=== PATIENT | female | born 1960 | race Caucasian/White ===

== ENCOUNTER 2020-08-20 20:09 | Emergency (ER) | payer BC ==
[2020-08-20 21:11] LABS: CHLORIDE,CL 106 mmol/L (98-107); SODIUM,NA 141 mmol/L (136-145)
--- NOTE | 2020-08-20 22:30 | EDM.PDOC ---
ED HPI GENERAL MEDICAL PROBLEM - General Chief Complaint: Chest Pain Stated Complaint: chest pain Time Seen by Provider: 08/20/20 21:00 Source of Information: Reports: Patient History Limitations: Reports: No Limitations - History of Present Illness INITIAL COMMENTS - FREE TEXT/NARRATIVE: Patient comes to ER after feeling not quite right for 3 or so days. Notes episodic brief pain right chest/no particular trigger. Pushing on area can cause discomfort. Chest also feels tight at times. Feels her heart beat flutters briefly at times. Has chronic SOB but it felt a bit worse today when she was trying to walk back to house. Feelings come and go. Again no particular triggers and nothing specifically improves them. Has had similar feelings before in past. Reports chest tightness a couple times a year. Mild light headedness this morning/brief. Had a few hot flashes. Has been trying to eat better/diet and is taking in around 1300 calories daily. Lost around 20 pounds. Took Aleve today. Has arthritis/chronic back pain and they have considered possible fibromyalgia. Dad had TX. Patient denies history of CAD/TX but is on Metoprolol for arrhythmia. Chest Pain Score (Numeric/FACES): 6 - Related Data Allergies Allergy/AdvReac Type Severity Reaction Status Date / Time morphine Allergy Rash Verified 08/20/20 20:22 Home Meds: Home Meds Ascorbic Acid [C-1000] 1 tab PO DAILY 08/20/20 [History] Aspirin 1 tab PO BEDTIME 08/20/20 [History] Cholecalciferol (Vitamin D3) [Vitamin D3] 1 cap PO DAILY 08/20/20 [History] Cyanocobalamin (Vitamin B-12) [Vitamin B-12] 1 tab PO DAILY 08/20/20 [History] Fish Oil/[place]-3 Fatty Acids [Fish Oil 1,000 MG] 1 cap PO DAILY 08/20/20 [History] Magnesium Carb,Citrate,Oxide [Magnesium Complex] 1 tab PO DAILY 08/20/20 [History] Methylcellulose (with Sugar) [Citrucel] 454 gm PO DAILY 08/20/20 [History] Metoprolol Tartrate 25 mg PO DAILY 08/20/20 [History] Naproxen Sodium [Aleve] 1 tab PO ASDIRECTED PRN 08/20/20 [History] polyethylene glycoL 3350 [MiraLAX] 17 gm PO ASDIRECTED PRN 08/20/20 [History] Past Medical History Cardiovascular History: Reports: Arrhythmia Gastrointestinal History: Reports: Chronic Constipation Musculoskeletal History: Reports: Back Pain, Chronic, Osteoarthritis Endocrine/Metabolic History: Reports: Hypothyroidism, Obesity/BMI 30+ Social & Family History - Tobacco Use Tobacco Use Status *Q: Never Tobacco User - Caffeine Use Caffeine Use: Reports: Coffee - Recreational Drug Use Recreational Drug Use: No ED ROS GENERAL - Review of Systems Review Of Systems: Comprehensive ROS is negative, except as noted in HPI. ED EXAM, GENERAL - Physical Exam Exam: See Below Exam Limited By: No Limitations General Appearance: Alert, No Apparent Distress, Obese Eye Exam: Bilateral Eye: EOMI, PERRL Ears: Normal External Exam, Normal Canal, Hearing Grossly Normal, Normal TMs Nose: No: Nasal Deformity, Nasal Swelling, Nasal Drainage Throat/Mouth: Normal Lips, Normal Voice, No Airway Compromise Head: Atraumatic, Normocephalic Neck: Normal Inspection, Supple, Non-Tender, Full Range of Motion. No: Carotid Bruit Respiratory/Chest: No Respiratory Distress, Lungs Clear, Normal Breath Sounds, No Accessory Muscle Use, Other (Some tenderness noted right pectoral area with palpation/mild) Cardiovascular: Normal Peripheral Pulses, Regular Rate, Rhythm, No Edema, No JVD, No Murmur GI/Abdominal: Normal Bowel Sounds, Soft, Non-Tender, No Distention (Female) Exam: Deferred Rectal (Female) Exam: Deferred Back Exam: No: CVA Tenderness (L), CVA Tenderness (R), Muscle Spasm Extremities: Normal Range of Motion, Non-Tender, Normal Capillary Refill Neurological: Alert, Oriented, Normal Cognition, Normal Gait, No Motor/Sensory Deficits Psychiatric: Normal Affect, Normal Mood Skin Exam: Warm, Dry, Intact, Normal Color #1 Interpretation EKG Date: 08/20/20 Time: 20:10 Rhythm: Other (Sinus Bradycardia) [place]: Normal P-Wave: Present QRS: Normal ST-T: Normal QT: Normal Comparison: NA - No Prior EKG Course - Vital Signs Last Recorded V/S: Last Vital Signs Temp 37.2 C 08/20/20 20:15 Pulse 59 L 08/20/20 20:15 Resp 19 08/20/20 21:15 BP 138/73 08/20/20 21:15 Pulse Ox 99 08/20/20 21:15 - Orders/Labs/Meds Orders: Active Orders 24 hr Category Date Time Status CXR [Chest 2V] [CR] Stat Exams 08/20/20 20:38 Taken Labs: Laboratory Tests 08/20/20 08/20/20 08/20/20 Range/Units 20:45 20:45 20:45 WBC 5.3 (4.0-10.2) K/uL RBC 3.95 (3.77-5.09) M/uL Hgb 11.9 (11.7-15.5) g/dL Hct 35.2 (34.0-46.0) % MCV 89.1 (84.0-98.0) fL MCH 30.1 (28.2-33.3) pg MCHC 33.8 (31.7-36.0) g/dL RDW 13.1 (11.2-14.1) % Plt Count 184 (150-350) K/uL Neut % (Auto) 56.4 (45.0-80.0) % Lymph % (Auto) 32.8 (10.0-50.0) % [place] % (Auto) 9.1 (2.0-14.0) % Eos % (Auto) 1.3 (0.0-5.0) % Baso % (Auto) 0.4 (0.0-2.0) % Neut # (Auto) 2.96 (1.40-7.00) K/uL Lymph # (Auto) 1.72 (0.50-3.50) K/uL [place] # (Auto) 0.48 (0.00-1.00) K/uL Eos # (Auto) 0.07 (0.00-0.50) K/uL Baso # (Auto) 0.02 (0.00-0.20) K/uL D-Dimer, Quantitative 257 (0-400) ng/mL Sodium 141 (136-145) mmol/L Potassium 3.7 (3.5-5.1) mmol/L Chloride 106 (98-107) mmol/L Carbon Dioxide 26.3 (21.0-32.0) mmol/L BUN 11 (7-18) mg/dL Creatinine 0.73 (0.51-1.17) mg/dL Est Cr Clr Drug Dosing 82.68 mL/min Estimated GFR (MDRD) > 60 mL/min Glucose 104 H (70-99) mg/dL Calcium 9.1 (8.5-10.1) mg/dL Magnesium 1.9 (1.8-2.4) mg/dL Total Bilirubin 0.3 (0.2-1.0) mg/dL AST 21 (15-37) U/L ALT 28 (12-78) U/L Alkaline Phosphatase 78 (46-116) IU/L Troponin I 0.000 (0.000-0.056) ng/mL NT-Pro-B Natriuret Pep 80 (0-125) pg/mL Total Protein 6.6 (6.4-8.2) g/dL Albumin 3.7 (3.4-5.0) g/dL TSH, Ultra Sensitive (0.358-3.740) mIU/mL Specimen Type Urine Color Urine Appearance Urine pH (5.0-9.0) Ur Specific [place] (1.005-1.030) Urine Protein (NEGATIVE) mg/dL Urine Glucose (UA) (NEGATIVE) mg/dL Urine Ketones (NEGATIVE) mg/dL Urine Occult Blood (NEGATIVE) Urine Nitrite (NEGATIVE) Urine Bilirubin (NEGATIVE) Urine Urobilinogen (0.2-1.0) E.U./dL Ur Leukocyte Esterase (NEGATIVE) Urine RBC /HPF Urine WBC /HPF Ur Epithelial Cells /LPF Urine Bacteria (NONE TO FEW) /HPF 08/20/20 08/20/20 Range/Units 20:45 22:10 WBC (4.0-10.2) K/uL RBC (3.77-5.09) M/uL Hgb (11.7-15.5) g/dL Hct (34.0-46.0) % MCV (84.0-98.0) fL MCH (28.2-33.3) pg MCHC (31.7-36.0) g/dL RDW (11.2-14.1) % Plt Count (150-350) K/uL Neut % (Auto) (45.0-80.0) % Lymph % (Auto) (10.0-50.0) % [place] % (Auto) (2.0-14.0) % Eos % (Auto) (0.0-5.0) % Baso % (Auto) (0.0-2.0) % Neut # (Auto) (1.40-7.00) K/uL Lymph # (Auto) (0.50-3.50) K/uL [place] # (Auto) (0.00-1.00) K/uL Eos # (Auto) (0.00-0.50) K/uL Baso # (Auto) (0.00-0.20) K/uL D-Dimer, Quantitative (0-400) ng/mL Sodium (136-145) mmol/L Potassium (3.5-5.1) mmol/L Chloride (98-107) mmol/L Carbon Dioxide (21.0-32.0) mmol/L BUN (7-18) mg/dL Creatinine (0.51-1.17) mg/dL Est Cr Clr Drug Dosing mL/min Estimated GFR (MDRD) mL/min Glucose (70-99) mg/dL Calcium (8.5-10.1) mg/dL Magnesium (1.8-2.4) mg/dL Total Bilirubin (0.2-1.0) mg/dL AST (15-37) U/L ALT (12-78) U/L Alkaline Phosphatase (46-116) IU/L Troponin I (0.000-0.056) ng/mL NT-Pro-B Natriuret Pep (0-125) pg/mL Total Protein (6.4-8.2) g/dL Albumin (3.4-5.0) g/dL TSH, Ultra Sensitive 4.670 H (0.358-3.740) mIU/mL Specimen Type Urinblad Urine Color Light yellow Urine Appearance Clear Urine pH 7.0 (5.0-9.0) Ur Specific [place] 1.015 (1.005-1.030) Urine Protein Negative (NEGATIVE) mg/dL Urine Glucose (UA) Negative (NEGATIVE) mg/dL Urine Ketones Negative (NEGATIVE) mg/dL Urine Occult Blood Negative (NEGATIVE) Urine Nitrite Negative (NEGATIVE) Urine Bilirubin Negative (NEGATIVE) Urine Urobilinogen 0.2 (0.2-1.0) E.U./dL Ur Leukocyte Esterase Trace H (NEGATIVE) Urine RBC 0-5 /HPF Urine WBC 0-5 /HPF Ur Epithelial Cells Few /LPF Urine Bacteria Few (NONE TO FEW) /HPF - Re-Assessments/Exams Free Text/Narrative Re-Assessment/Exam: 08/20/20 23:41 Chest xray / EKG unremarkable. CBC/Chem/Mg/trop/ddimer/Mag/proBNP normal TSH elevated. No arrhythmia noted on monitor. BP/vital signs stable. Patient declined observation admission/telemetry/troponin checks. Asymptomatic at that time. Uncertain as to etiology of her complaints. Not obviously cardiac in origin. Right chest pain appears to be more likely musculoskeletal. Appears to be hypothyroid. Needs appropriate Thyroid workup labs. Plan at this time is to have her follow up this week at clinic for further testing. She is to continue to observe for changes and is to follow up in ER if she has sudden worsening problems. Clinic can consider stress test as precaution. Patient agreeable with plan. Departure - Departure Time of Disposition: 22:28 Disposition: Home, Self-Care 01 Condition: Good Clinical Impression: Does not feel right, High thyroid stimulating hormone (TSH) level - Discharge Information *PRESCRIPTION DRUG MONITORING PROGRAM REVIEWED*: Not Applicable *COPY OF PRESCRIPTION DRUG MONITORING REPORT IN PATIENT JOSIE: Not Applicable Referrals: PCP,None [Primary Care Provider] - Forms: ED Department Discharge Additional Instructions: Make an appointment to be seen next week at clinic. Get full thyroid testing. See how you are feeling and if any new symptoms develop between now and the appointment. Further evaluation as needed. Return to the ER if you have sudden worsening problems. Sepsis Event Note (ED) - Evaluation Sepsis Screening Result: No Definite Risk - Focused Exam Vital Signs: Vital Signs Temp Pulse Resp BP Pulse Ox 08/20/20 21:15 19 138/73 99 08/20/20 21:05 18 127/70 98 08/20/20 20:30 17 120/70 97 08/20/20 20:15 37.2 C 59 L 19 120/63 98 - My Orders Last 24 Hours: My Active Orders 08/20/20 20:38 CXR [Chest 2V] [CR] Stat - Assessment/Plan Last 24 Hours: My Active Orders 08/20/20 20:38 CXR [Chest 2V] [CR] Stat
== END 2020-08-20 22:50 | disposition home or self-care (01) ==
LOC: LL.ED 20:09
DX: R94.6 Abnormal results of thyroid function studies (principal); R00.1 Bradycardia, unspecified; M19.90 Unspecified osteoarthritis, unspecified site; E03.9 Hypothyroidism, unspecified; E66.9 Obesity, unspecified; Z68.37 Body mass index [BMI] 37.0-37.9, adult; Z79.82 Long term (current) use of aspirin; Z79.899 Other long term (current) drug therapy; Z88.5 Allergy status to narcotic agent
CPT/HCPCS: 36415; 71046; 80053; 81001; 83735; 83880; 84443; 84484; 85025; 85379; 93005; 93010; 99284; 99285-25

== ENCOUNTER 2022-06-08 09:29 | Emergency (ER) | payer BC ==
[2022-06-08 10:51] LABS: ANION GAP 6.8 meq/L (7-15); CHLORIDE,CL 103 mmol/L (98-107); SODIUM,NA 139 mmol/L (136-145)
[2022-06-08 10:57] LABS: ESTIMATED GFR 86 mL/min (>=60)
== END 2022-06-08 13:10 | disposition home or self-care (01) ==
LOC: LL.ED 09:29
DX: K57.32 Diverticulitis of large intestine without perforation or abscess without bleeding (principal); E03.9 Hypothyroidism, unspecified; E66.9 Obesity, unspecified; Z68.30 Body mass index [BMI] 30.0-30.9, adult; Z88.5 Allergy status to narcotic agent; Z79.82 Long term (current) use of aspirin
CPT/HCPCS: 36415; 74176; 80053; 81003; 85025; 99284

== ENCOUNTER 2023-07-10 10:37 | Day surgery (SDC) | payer BC ==
[~2023-07-10 10:37] MED LIST: Propofol 200 MG/20 ML SDV ONE; Sodium Chloride 0.9% 10 ML Syringe FLUSH PRN
[2023-07-10] MEDS: Lactated Ringers 1,000 ML IV SCH ×2 (10:44→12:43)
[2023-07-10] MEDS ORDERED: Propofol 200 MG/20 ML SDV ONE (12:16)
== END 2023-07-10 13:28 | disposition home or self-care (01) ==
LOC: LL.SDS 10:37
PROVIDERS: ATTEND Surgery
DX: Z12.11 Encounter for screening for malignant neoplasm of colon (principal); K57.30 Diverticulosis of large intestine without perforation or abscess without bleeding; K21.9 Gastro-esophageal reflux disease without esophagitis; E03.9 Hypothyroidism, unspecified; F41.9 Anxiety disorder, unspecified; Z79.82 Long term (current) use of aspirin; Z79.890 Hormone replacement therapy; Z79.899 Other long term (current) drug therapy; Z88.5 Allergy status to narcotic agent; Z88.1 Allergy status to other antibiotic agents
CPT/HCPCS: J2704; J7120